=== PATIENT | female | born 1955 | race Caucasian/White ===

== ENCOUNTER 2017-04-10 07:09 | Day surgery (SDC) | payer OTHER ==
[~2017-04-10] VITALS: Ht 157.5 cm; Wt 72.7 kg
[~2017-04-10 07:09] MED LIST: SODIUM CHLORIDE 0.9% 1,000 ML IV ONE
[2017-04-10] MEDS ORDERED: LIDOCAINE HCL 4% 50 ML SOLUTION TP ONE (07:10)
[2017-04-10] MEDS ORDERED: BENZOCAINE 20% 50 MCG/SPRAY 57 GM TP ONE (07:10)
[2017-04-10] MEDS ORDERED: LIDOCAINE HCL 2% 5 ML JELLY TP ONE (07:10)
[2017-04-10] MEDS ORDERED: ALBUTEROL SULFATE 2.5 MG/0.5 ML NEB SOLUTION NEB ONE (07:10)
[2017-04-10] MEDS ORDERED: SODIUM CHLORIDE 0.9% 1,000 ML IV ONE (07:22)
[2017-04-10] MEDS ORDERED: MIDAZOLAM HCL 2 MG/2 ML VIAL ONE (07:36)
[2017-04-10] MEDS ORDERED: FentaNYL CITRATE-PF 100 MCG/2 ML VIAL ONE (07:36)
[2017-04-10] MEDS ORDERED: DSS100 PO (08:00)
[2017-04-10] MEDS ORDERED: FAMO20 PO (08:00)
[2017-04-10] MEDS ORDERED: ALBU8.5H8 IH (08:00)
[2017-04-10] MEDS ORDERED: BACL10TA PO (08:00)
[2017-04-10] MEDS ORDERED: ZOLP5 PO (08:00)
[2017-04-10] MEDS ORDERED: BECL8.7A7 PO (08:00)
[2017-04-10] MEDS ORDERED: PRED10 PO (08:00)
[2017-04-10] MEDS ORDERED: MONT10TA21 PO (08:00)
[2017-04-10] MEDS ORDERED: LISI-661 PO (08:00)
[2017-04-10] MEDS ORDERED: GABA-531 PO (08:00)
[2017-04-10] MEDS ORDERED: FLUT16H NASAL (08:00)
[2017-04-10] MEDS ORDERED: MethylPREDNISolone SOD SUCC 125 MG/2 ML VIAL IVP ONE (09:15)
[2017-04-10] MEDS ORDERED: MethylPREDNISolone SOD SUCC 125 MG/2 ML VIAL ONE (09:38)
[2017-04-10] MEDS ORDERED: OXYGEN THERAPY IH SCH (20:00)
== END 2017-04-10 10:40 | disposition home or self-care (01) ==
LOC: SURGERY 07:09
PROVIDERS: ATTEND Internal Medicine Critical Care Medicine
DX: J38.4 Edema of larynx (principal); B37.0 Candidal stomatitis; J44.9 Chronic obstructive pulmonary disease, unspecified; M19.90 Unspecified osteoarthritis, unspecified site; K21.9 Gastro-esophageal reflux disease without esophagitis; Z86.11 Personal history of tuberculosis; Z98.890 Other specified postprocedural states; Z98.51 Tubal ligation status; Z79.899 Other long term (current) drug therapy
CPT/HCPCS: 31623; 31624; 71010; 87015 ×2; 87070; 87101; 87205; 87220; 88108; 88312; J2250; J2930; J3010; J7030